=== PATIENT | male | born 1995 | race Caucasian/White ===

== ENCOUNTER 2016-09-26 23:27 | Emergency (ER) | payer BC ==
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
[2016-09-27 02:04] VITALS: BP 120/59
--- NOTE | 2016-09-28 12:05 | CR ---
EXAM DATE: 09/26/16 PATIENT'S AGE: 21 Patient: AYANNA HAYES Facility: [place], [place] Site . Site : 1995 Study: XRay Extremity Left [id number] 12:27:39 AM Ordering Physician: Hussein Wang Final Report: INDICATION: Trauma. TECHNIQUE: Three views left ankle COMPARISON: None FINDINGS: Bones: Lateral malleoli fracture. Joint spaces: Unremarkable. Soft tissues: Lateral ankle edema. IMPRESSION: Lateral malleoli fracture with adjacent edema. Dictated by Josef Riley MD @ 09/27/2016 12:49:43 AM Dictated by: Josef Riley MD @ 09/27/2016 00:49:47 (Electronic Signature) Report Signed by Proxy. NAHUM
--- NOTE | 2016-09-28 12:06 | CR ---
EXAM DATE: 09/26/16 PATIENT'S AGE: 21 Patient: AYANNA HAYES Facility: [place], [place] Site . Site : 1995 Study: XRay Extremity Left [id number] 12:27:59 AM Ordering Physician: Hussein Wang Final Report: INDICATION: Trauma. TECHNIQUE: Three views left foot COMPARISON: None FINDINGS: Bones: Alignment is normal. Fracture lateral malleoli. Joint spaces: Unremarkable. Soft tissues: Lateral ankle edema. IMPRESSION: Fracture lateral malleoli with adjacent lateral edema. Dictated by Josef Riley MD @ 09/27/2016 12:46:59 AM Dictated by: Josef Riley MD @ 09/27/2016 00:48:41 (Electronic Signature) Report Signed by Proxy. F F TH[facility]PSON HOSPITALBrennen
== END 2016-09-27 02:07 | disposition home or self-care (01) ==
LOC: MW.ED 23:27
DX: S82.62XA Displaced fracture of lateral malleolus of left fibula, initial encounter for closed fracture (principal); S93.402A Sprain of unspecified ligament of left ankle, initial encounter; W16.622A Jumping or diving into natural body of water striking bottom causing other injury, initial encounter; Y92.828 Other wilderness area as the place of occurrence of the external cause; Y93.39 Activity, other involving climbing, rappelling and jumping off
CPT/HCPCS: 73610-26-LT; 73610-LT; 73630-26-LT; 73630-LT; 99283

== ENCOUNTER → 2016-09-28 | Outpatient (CLI) | payer BC ==
--- NOTE | 2016-09-28 10:12 | CR ---
EXAMINATION: Left ankle HISTORY: Pain COMPARISON: 09/27/2016 TECHNIQUE: 2 views FINDINGS/IMPRESSION: There is a stable nondisplaced distal fibular fracture identified. There is a t iny chip fracture of the distal aspect of the medial malleolus. Ankle mortise appears mildly widened with stress.
== END ==
LOC: MW.CHORTHO 07:52
PROVIDERS: ATTEND Physician Assistant
DX: M25.572 Pain in left ankle and joints of left foot (principal); S82.492A Other fracture of shaft of left fibula, initial encounter for closed fracture; S82.52XA Displaced fracture of medial malleolus of left tibia, initial encounter for closed fracture
CPT/HCPCS: 77071-26-LT; 77071-LT

== ENCOUNTER 2017-11-28 08:18 | Emergency (ER) | payer BC ==
[2017-11-28] MEDS ORDERED: diphenhydrAMINE 50 MG/ML SDV IM ONE (08:45)
[2017-11-28] MEDS ORDERED: methylPREDNISolone Sodium Succinate 125 MG/2 ML SDV IM ONE (08:45)
--- NOTE | 2017-11-28 08:50 | EDM.PDOC ---
ED HPI GENERAL MEDICAL PROBLEM - General Chief Complaint: Skin Complaint Stated Complaint: BREAK OUT IN RASH Time Seen by Provider: 11/28/17 08:40 - History of Present Illness INITIAL COMMENTS - FREE TEXT/NARRATIVE: HISTORY AND PHYSICAL: History of present illness: The patient is a healthy 22-year-old male who presents with complaints of a burning sensation on his extremities and trunk and some itching in his upper extremities that started after taking a shower this morning. The patient has not used any new products and has not eaten any new foods and he has no symptoms to his face and has no oral swelling shortness of breath. The patient took no medications prior to coming here. He says he has not noticed a rash but feels like his skin is red. He Is not taking any medications currently Review of systems: As per history of present illness and below otherwise all systems reviewed and negative. Past medical history: As per history of present illness and as reviewed below otherwise noncontributory. Surgical history: As per history of present illness and as reviewed below otherwise noncontributory. Social history: No reported history of drug or alcohol abuse. Family history: As per history of present illness and as reviewed below otherwise noncontributory. Physical exam: General: Well-developed well-nourished man who is nontoxic and speaking clearly and easily in the ED. Vital signs have been reviewed by me HEENT: Atraumatic, normocephalic, negative for conjunctival pallor or scleral icterus, mucous membranes moist, throat clear, neck supple, nontender, trachea midline. There is Oropharyngeal swelling or facial swelling Lungs: Clear to auscultation, breath sounds equal bilaterally, chest nontender. No wheezing or stridor Heart: S1S2, regular rate and rhythm no overt murmurs Abdomen: Soft, nondistended, nontender. Nabs Pelvis: Deferred Genitourinary: Deferred. Rectal: Deferred. Extremities: Atraumatic, negative for cords or calf pain. Neurovascular unremarkable. Neuro: Awake, alert, oriented. Cranial nerves II through XII unremarkable. Cerebellum unremarkable. Motor and sensory unremarkable throughout. Exam nonfocal. Skin: There is a diffuse erythematous look to his upper extremities and back slightly on his abdomen but this spares his neck and face. There is also some involvement of his lower extremities. At the inner aspect of his upper arms bilaterally there is the start of some urticarial hives. There are no vesicles. Diagnostics: [] Therapeutics: Benadryl Solu-Medrol Impression: Contact allergic reaction Definitive disposition and diagnosis as appropriate pending reevaluation and review of above. Skin Through Body Pain Score (Numeric/FACES): 6 - Related Data Allergies Allergy/AdvReac Type Severity Reaction Status Date / Time No Known Allergies Allergy Verified 11/28/17 08:28 Home Meds: Home Meds . [No Known Home Meds] 09/26/16 [History] Past Medical History - Past Health History Medical/Surgical History: Denies Medical/Surgical History - Infectious Disease History Infectious Disease History: Reports: Chicken Pox - Past Surgical History HEENT Surgical History: Reports: Oral Surgery Other Musculoskeletal Surgeries/Procedures:: pin on right foot Social & Family History - Family History Family Medical History: Noncontributory - Tobacco Use Smoking Status *Q: Never Smoker - Caffeine Use Caffeine Use: Reports: None - Recreational Drug Use Recreational Drug Use: No ED ROS GENERAL - Review of Systems Review Of Systems: ROS reveals no pertinent complaints other than HPI. ED EXAM, SKIN/RASH Exam: See Below (See dictation) Course - Vital Signs Last Recorded V/S: Last Vital Signs Temp 36.6 C 11/28/17 08:29 Pulse 88 11/28/17 08:29 Resp 18 11/28/17 08:29 BP 145/90 H 11/28/17 08:29 Pulse Ox 98 11/28/17 08:29 - Orders/Labs/Meds Orders: Active Orders 24 hr Category Date Time Status diphenhydrAMINE [Benadryl] Med 11/28/17 08:45 Once 50 mg IM ONETIME ONE methylPREDNISolone Sod Succ [Solu-MEDROL] Med 11/28/17 08:45 Once 125 mg IM ONETIME ONE Medication Orders Diphenhydramine HCl (Benadryl) 50 mg IM ONETIME ONE Stop: 11/28/17 08:46 Methylprednisolone Sodium Succinate (Solu-Medrol) 125 mg IM ONETIME ONE Stop: 11/28/17 08:46 Meds: Medications Generic Name Dose Route Start Last Admin Trade Name Freq PRN Reason Stop Dose Admin Diphenhydramine HCl 50 mg 11/28/17 08:45 Benadryl IM 11/28/17 08:46 ONETIME ONE Methylprednisolone Sodium Succinate 125 mg 11/28/17 08:45 Solu-Medrol IM 11/28/17 08:46 ONETIME ONE Departure - Departure Time of Disposition: 08:48 Disposition: Home, Self-Care 01 Condition: Good Clinical Impression: Contact allergic reaction - Discharge Information Referrals: PCP,None [Primary Care Provider] - Additional Instructions: The following information is given to patients seen in the emergency department who are being discharged to home. This information is to outline your options for follow-up care. We provide all patients seen in our emergency department with a follow-up referral. The need for follow-up, as well as the timing and circumstances, are variable depending upon the specifics of your emergency department visit. If you don't have a primary care physician on staff, we will provide you with a referral. We always advise you to contact your personal physician following an emergency department visit to inform them of the circumstance of the visit and for follow-up with them and/or the need for any referrals to a consulting specialist. The emergency department will also refer you to a specialist when appropriate. This referral assures that you have the opportunity for followup care with a specialist. All of these measure are taken in an effort to provide you with optimal care, which includes your followup. Under all circumstances we always encourage you to contact your private physician who remains a resource for coordinating your care. When calling for followup care, please make the office aware that this follow-up is from your recent emergency room visit. If for any reason you are refused follow-up, please contact the [facility] emergency department at and ask to speak to the emergency department charge nurse. [facility] Primary care- Internal [place] [address] Please try to explore your world to see what may have caused this as we discussed. Please take Benadryl 50 mg every 6 hours for the next 24-36 hours and be advised that this may make you drowsy or sleepy. Please also take the Medrol Dosepak you have been given. Please add [id number] Claritin or Mari. Return to ER as needed and as discussed. Please call and schedule a follow-up appointment in the clinic - My Orders Last 24 Hours: My Active Orders 11/28/17 08:45 diphenhydrAMINE [Benadryl] 50 mg IM ONETIME ONE methylPREDNISolone Sod Succ [Solu-MEDROL] 125 mg IM ONETIME ONE - Assessment/Plan Last 24 Hours: My Active Orders 11/28/17 08:45 diphenhydrAMINE [Benadryl] 50 mg IM ONETIME ONE methylPREDNISolone Sod Succ [Solu-MEDROL] 125 mg IM ONETIME ONE
[2017-11-28 09:08] VITALS: BP 135/70
== END 2017-11-28 09:15 | disposition home or self-care (01) ==
LOC: MW.ED 08:18
DX: L23.9 Allergic contact dermatitis, unspecified cause (principal)
CPT/HCPCS: 96372; 99282; J1200; J2930

== ENCOUNTER 2018-08-09 07:00 | Emergency (ER) | payer OTHER ==
--- NOTE | 2018-08-09 07:32 | EDM.PDOC ---
ED HPI GENERAL MEDICAL PROBLEM - General Chief Complaint: Allergic Reaction Stated Complaint: RASH AND ITCHY Time Seen by Provider: 08/09/18 07:20 - History of Present Illness INITIAL COMMENTS - FREE TEXT/NARRATIVE: HISTORY AND PHYSICAL: History of present illness: Patient's 23-year-old white male presents with a concern of diffuse pruritic rash he's had similar episodes in the past over the last year he denies any tongue or lip swelling any dysphagia any difficulty speaking any tongue or lip swelling or other concern. Review of systems: As per history of present illness and below otherwise all systems reviewed and negative. Past medical history: As per history of present illness and as reviewed below otherwise noncontributory. Surgical history: As per history of present illness and as reviewed below otherwise noncontributory. Social history: No reported history of drug or alcohol abuse. Family history: As per history of present illness and as reviewed below otherwise noncontributory. Physical exam: HEENT: Atraumatic, normocephalic, pupils reactive, negative for conjunctival pallor or scleral icterus, mucous membranes moist, throat clear, neck supple, nontender, trachea midline. Lungs: Clear to auscultation, breath sounds equal bilaterally, chest nontender. Heart: S1S2, regular, negative for clicks, rubs, or JVD. Abdomen: Soft, nondistended, nontender. Negative for masses or hepatosplenomegaly. Negative for costovertebral tenderness. Pelvis: Stable nontender. Genitourinary: Deferred. Rectal: Deferred. Extremities: Atraumatic, negative for cords or calf pain. Neurovascular unremarkable. Relatively minor diffuse maculopapular type rash. Neuro: Awake, alert, oriented. Cranial nerves II through XII unremarkable. Cerebellum unremarkable. Motor and sensory unremarkable throughout. Exam nonfocal. Diagnostics: None Therapeutics: None Impression: #1 rash probable allergic dermatitis Definitive disposition and diagnosis as appropriate pending reevaluation and review of above. - Related Data Allergies Allergy/AdvReac Type Severity Reaction Status Date / Time No Known Allergies Allergy Verified 08/09/18 07:16 Home Meds: Home Meds . [No Known Home Meds] 09/26/16 [History] Past Medical History - Past Health History Medical/Surgical History: Denies Medical/Surgical History - Infectious Disease History Infectious Disease History: Reports: Chicken Pox - Past Surgical History HEENT Surgical History: Reports: Oral Surgery Other Musculoskeletal Surgeries/Procedures:: pin on right foot Social & Family History - Family History Family Medical History: Noncontributory - Caffeine Use Caffeine Use: Reports: None ED ROS ALLERGIC REACTION - Review of Systems Review Of Systems: ROS reveals no pertinent complaints other than HPI. ED EXAM GENERAL NO PERIP PULSE - Physical Exam Exam: See Below (See dictation) Course - Vital Signs Last Recorded V/S: Last Vital Signs Temp 35.9 C 08/09/18 07:13 Pulse 85 08/09/18 07:13 Resp 18 08/09/18 07:13 BP 140/84 08/09/18 07:13 Pulse Ox 95 08/09/18 07:13 Departure - Departure Time of Disposition: 07:32 Disposition: Home, Self-Care 01 Condition: Good Clinical Impression: Rash - Discharge Information Referrals: PCP,None [Primary Care Provider] - Additional Instructions: The following information is given to patients seen in the emergency department who are being discharged to home. This information is to outline your options for follow-up care. We provide all patients seen in our emergency department with a follow-up referral. The need for follow-up, as well as the timing and circumstances, are variable depending upon the specifics of your emergency department visit. If you don't have a primary care physician on staff, we will provide you with a referral. We always advise you to contact your personal physician following an emergency department visit to inform them of the circumstance of the visit and for follow-up with them and/or the need for any referrals to a consulting specialist. The emergency department will also refer you to a specialist when appropriate. This referral assures that you have the opportunity for followup care with a specialist. All of these measure are taken in an effort to provide you with optimal care, which includes your followup. Under all circumstances we always encourage you to contact your private physician who remains a resource for coordinating your care. When calling for followup care, please make the office aware that this follow-up is from your recent emergency room visit. If for any reason you are refused follow-up, please contact the [facility] emergency department at and asked to speak to the emergency department charge nurse. [facility] [address] [place] [phone] Benadryl Medrol as prescribed follow-up primary medical doctor and/or clinic above of schedule routine appointment return as needed as discussed
[2018-08-09 07:46] VITALS: BP 125/79
== END 2018-08-09 07:42 | disposition home or self-care (01) ==
LOC: MW.ED 07:00
DX: R21 Rash and other nonspecific skin eruption (principal)
CPT/HCPCS: 99282